=== PATIENT | female | born 1990 | race Caucasian/White ===

== ENCOUNTER 2023-05-11 03:06 | Emergency (ER) | payer MEDICAID ==
[~2023-05-11] VITALS: Ht 170.2 cm; Wt 145.1 kg
[2023-05-11 03:18] VITALS: BP 127/80; PULSE 153; RESP 16; TEMP 97; O2SAT 99
[2023-05-11 03:35] VITALS: O2SAT 94
[2023-05-11 03:39] VITALS: TEMP 98
[2023-05-11] MEDS ORDERED: MORPHINE SULFATE 4 MG/ML SYR IVP ONE (03:45)
[2023-05-11] MEDS ORDERED: ONDANSETRON 4 MG/2 ML VIAL IVP ONE (03:45)
[2023-05-11] MEDS ORDERED: NACL 0.9% 1,000 ML IV ONE (03:45)
[2023-05-11 04:00] LABS: BILIRUBIN,URINE NEGATIVE (NEGATIVE); BLOOD, URINE TRACE-I (NEGATIVE); COLOR,URINE YELLOW (YELLOW); LEUKOCYTE ESTERASE ,URINE NEGATIVE (NEGATIVE); NITRITE, URINE NEGATIVE (NEGATIVE); PROTEIN,URINE NEGATIVE (NEGATIVE); UGLUCOSE NEGATIVE (NEGATIVE); UROBILINOGEN,URINE 0.2 EU/dL (0.2 - 1)
[2023-05-11 04:23] LABS: BASOPHILS % (AUTO) 0.3 % (0.0-2.0); EOSINOPHILS # (AUTO) 0.1 K/uL (0-0.4); EOSINOPHILS % (AUTO) 0.6 % (0.0-4.0); HEMATOCRIT 39.9 % (36-48); HEMOGLOBIN 12.9 g/dL (12.0-16.0); LYMPHOCYTES # (AUTO) 1.1 K/uL (2.5-16.5); LYMPHOCYTES % (AUTO) 8.7 % (20.5-51.1); MEAN CORPUSCULAR HEMOGLOBIN 26 pg (27-31); MEAN CORPUSCULAR HGB CONC 32 g/dL (33-37); MEAN CORPUSCULAR VOLUME 81.8 fL (80-94); MONOCYTES # (AUTO) 0.9 K/uL (0.8-1.0); MONOCYTES % (AUTO) 7.5 % (1.7-9.3); NEUTROPHILS # (AUTO) 10.5 K/uL (1.8-7.7); PLATELET COUNT (AUTO) 305 K/uL (140-450); RED BLOOD CELL COUNT(AUTO) 4.88 MIL/uL (4.20-5.40); RED CELL DISTRIBUTION WIDTH 14.6 % (11.6-13.7); WHITE BLOOD COUNT (AUTO) 12.6 K/uL (4.8-10.8)
[2023-05-11 04:29] LABS: APPEARANCE,URINE SLIGHTLY HAZY (CLEAR)
[2023-05-11 04:30] LABS: ALBUMIN 3.2 g/dL (3.4-5.0); ANION GAP 10.3 (8-16); CALCIUM 8.4 mg/dL (8.5-10.1); CARBON DIOXIDE 29.7 mmol/L (21-32); CREATININE 0.9 mg/dL (0.6-1.3); TOTAL BILIRUBIN 0.5 mg/dL (0.0-1.0)
[2023-05-11 04:32] LABS: BACTERIA,URINE 1+ /HPF (None Seen); RBC,URINE 0-5 /HPF (0-5); WBC,URINE 0-5 /HPF (0-5)
[2023-05-11 04:50] LABS: NEUTROPHILS % (AUTO) 82.9 % (42.2-75.2)
[2023-05-11 05:34] VITALS: BP 101/50; PULSE 92; RESP 19; O2SAT 96
== END 2023-05-11 05:31 | disposition home or self-care (01) ==
LOC: MED 03:06
DX: K80.20 Calculus of gallbladder without cholecystitis without obstruction (principal); E66.01 Morbid (severe) obesity due to excess calories; Z68.1 Body mass index [BMI] 19.9 or less, adult; Z79.899 Other long term (current) drug therapy
CPT/HCPCS: 36415; 76705; 80053; 81001; 82150; 83690; 85025; 93005; 96361; 96374; 96375; 99285; J2270; J2405; J7030; Q0092

== ENCOUNTER 2023-06-08 03:16 | Emergency (ER) | payer MEDICAID ==
[~2023-06-08] VITALS: Ht 170.2 cm; Wt 136.1 kg
[2023-06-08 03:30] VITALS: BP 109/50; PULSE 111; RESP 21; TEMP 98.3; O2SAT 97
[2023-06-08 04:13] LABS: FLU A ANTIGEN negative (NEGATIVE); FLU B ANTIGEN negative (NEGATIVE)
[2023-06-08] MEDS ORDERED: ACETAMINOPHEN EXTRA STRENGTH 500 MG TAB PO ONE (04:20)
[2023-06-08] MEDS ORDERED: ONDANSETRON 4 MG ODT PO ONE (04:20)
[2023-06-08] MEDS ORDERED: KETOROLAC 60 MG/2 ML VIAL IM ONE (04:20)
[2023-06-08] MEDS ORDERED: ONDA-188 PO (04:49)
[2023-06-08] MEDS ORDERED: IBUP-2217 PO (04:52)
== END 2023-06-08 05:00 | disposition home or self-care (01) ==
LOC: MED 03:16
DX: U07.1 COVID-19 (principal); B34.9 Viral infection, unspecified; Z79.899 Other long term (current) drug therapy; Z79.1 Long term (current) use of non-steroidal anti-inflammatories (NSAID)
CPT/HCPCS: 87426; 87804; 96372; 99284; J1885; Q0162

== ENCOUNTER 2023-08-28 16:36 | Emergency (ER) | payer MEDICAID ==
[~2023-08-28] VITALS: Ht 170.2 cm; Wt 136.1 kg
[~2023-08-28 16:36] MED LIST: IBUP-2217 PO; ONDA-188 PO
[2023-08-28 16:46] VITALS: BP 127/88; PULSE 89; RESP 20; TEMP 98.1; O2SAT 100
[2023-08-28 17:28] LABS: BASOPHILS # (AUTO) 0.1 K/uL (0.00-0.22); BASOPHILS % (AUTO) 0.4 % (0.0-2.0); EOSINOPHILS # (AUTO) 0.2 K/uL (0-0.4); EOSINOPHILS % (AUTO) 1.4 % (0.0-4.0); HEMATOCRIT 39.1 % (36-48); HEMOGLOBIN 12.8 g/dL (12.0-16.0); LYMPHOCYTES % (AUTO) 13.5 % (20.5-51.1); MEAN CORPUSCULAR HEMOGLOBIN 27 pg (27-31); MEAN CORPUSCULAR HGB CONC 33 g/dL (33-37); MEAN CORPUSCULAR VOLUME 82.6 fL (80-94); MONOCYTES # (AUTO) 0.7 K/uL (0.8-1.0); NEUTROPHILS # (AUTO) 11.6 K/uL (1.8-7.7); NEUTROPHILS % (AUTO) 79.7 % (42.2-75.2); PLATELET COUNT (AUTO) 374 K/uL (140-450); RED BLOOD CELL COUNT(AUTO) 4.73 MIL/uL (4.20-5.40); RED CELL DISTRIBUTION WIDTH 14.4 % (11.6-13.7); WHITE BLOOD COUNT (AUTO) 14.5 K/uL (4.8-10.8)
[2023-08-28 17:45] LABS: ANION GAP 12.4 (8-16); CALCIUM 8.3 mg/dL (8.5-10.1); CARBON DIOXIDE 28.6 mmol/L (21-32); CREATININE 0.7 mg/dL (0.6-1.3)
[2023-08-28] MEDS: KETOROLAC 30 MG/ML VIAL IVP ONE (17:47)
[2023-08-28] MEDS: ONDANSETRON 4 MG/2 ML VIAL IVP ONE (17:47)
[2023-08-28 17:49] LABS: ALANINE AMINOTRANSFERASE 30 U/L (12-78); ALKALINE PHOSPHATASE 152 U/L (50-136); ASPARTATE AMINOTRANSFERASE 36 U/L (15-37); BILIRUBIN,DIRECT 0.2 mg/dL (0.0-0.3); LIPASE 48 U/L (16-77); TOTAL BILIRUBIN 0.3 mg/dL (0.0-1.0)
[2023-08-28 18:01] VITALS: O2SAT 96
[2023-08-28 18:32] VITALS: O2SAT 96
[2023-08-28] MEDS: MORPHINE SULFATE 4 MG/ML SYR IVP ONE (18:45)
[2023-08-28] MEDS: FAMOTIDINE 20 MG TAB PO ONE (18:59)
[2023-08-28] MEDS ORDERED: ONDA-188 SL (19:31)
[2023-08-28] MEDS ORDERED: ACET-8905 PO (19:31)
[2023-08-28] MEDS ORDERED: FAMO-90 PO (19:31)
== END 2023-08-28 19:45 | disposition home or self-care (01) ==
LOC: MED 16:36
DX: R10.13 Epigastric pain (principal); R07.9 Chest pain, unspecified; R11.10 Vomiting, unspecified; Z79.899 Other long term (current) drug therapy
CPT/HCPCS: 36415; 71045; 80048; 80076; 81002; 81025; 83690; 84484; 85025; 93005; 96374; 96375; 99285; J1885; J2270; J2405

== ENCOUNTER 2023-08-30 14:50 | Inpatient (IN) | payer MEDICAID ==
[~2023-08-30] VITALS: Ht 170.2 cm; Wt 136.1 kg
[~2023-08-30 14:50] MED LIST changes: +ACET-8905 PO; +FAMO-90 PO; +ONDA-188 SL
[2023-08-30 15:00] VITALS: BP 121/81; PULSE 103; RESP 18; TEMP 96.8; O2SAT 99
[2023-08-30 15:38] LABS: BASOPHILS % (AUTO) 0.2 % (0.0-2.0); EOSINOPHILS # (AUTO) 0.2 K/uL (0-0.4); EOSINOPHILS % (AUTO) 1.2 % (0.0-4.0); HEMATOCRIT 38.9 % (36-48); HEMOGLOBIN 12.8 g/dL (12.0-16.0); LYMPHOCYTES # (AUTO) 2.2 K/uL (2.5-16.5); LYMPHOCYTES % (AUTO) 15.4 % (20.5-51.1); MEAN CORPUSCULAR HEMOGLOBIN 27 pg (27-31); MEAN CORPUSCULAR HGB CONC 33 g/dL (33-37); MEAN CORPUSCULAR VOLUME 82.6 fL (80-94); MONOCYTES # (AUTO) 0.8 K/uL (0.8-1.0); MONOCYTES % (AUTO) 5.3 % (1.7-9.3); NEUTROPHILS # (AUTO) 11.3 K/uL (1.8-7.7); NEUTROPHILS % (AUTO) 77.9 % (42.2-75.2); PLATELET COUNT (AUTO) 381 K/uL (140-450); RED BLOOD CELL COUNT(AUTO) 4.71 MIL/uL (4.20-5.40); RED CELL DISTRIBUTION WIDTH 14.6 % (11.6-13.7); WHITE BLOOD COUNT (AUTO) 14.6 K/uL (4.8-10.8)
[2023-08-30 15:50] VITALS: O2SAT 99
[2023-08-30] MEDS: FAMOTIDINE 20 MG/2 ML VIAL IVP ONE (15:59)
[2023-08-30] MEDS: NACL 0.9% 1,000 ML IV ONE (16:00)
[2023-08-30] MEDS: MORPHINE SULFATE 4 MG/ML SYR IVP ONE (16:01)
[2023-08-30] MEDS: ONDANSETRON 4 MG/2 ML VIAL IVP ONE (16:01)
[2023-08-30 16:07] LABS: ANION GAP 13.8 (8-16); CARBON DIOXIDE 26.7 mmol/L (21-32); CREATININE 0.7 mg/dL (0.6-1.3); POTASSIUM 3.5 mmol/L (3.5-5.1)
[2023-08-30 16:09] LABS: BILIRUBIN,DIRECT 0.4 mg/dL (0.0-0.3); TOTAL BILIRUBIN 0.6 mg/dL (0.0-1.0); TOTAL PROTEIN, SERUM 8.1 g/dL (6.4-8.2)
[2023-08-30] MEDS ORDERED: PIPERACILLIN/TAZOBACTAM 3.375 GM VIAL IV ONE (16:54)
[2023-08-30] MEDS: PIPERACILLIN/TAZOBACTAM 3.375 GM in DEXTROSE 5% 50 ML IV ONE (16:58)
[2023-08-30 17:34] LABS: CALCIUM 8.6 mg/dL (8.5-10.1)
[2023-08-30] MEDS ORDERED: [UNRECOGNIZED DRUG - CODE] PO (17:53)
[2023-08-30] MEDS ORDERED: MORPHINE SULFATE 4 MG/ML SYR ONE (18:10)
[2023-08-30] MEDS: MORPHINE SULFATE 4 MG/ML SYR IV ONE (18:14)
[2023-08-30 19:47] VITALS: O2SAT 97
[2023-08-30 21:59] LABS: LACTIC ACID 1.4 mmol/L (0.4-2.0)
[2023-08-30] MEDS: HYDROcodone/APAP 5/325 MG 1 TAB TAB PO PRN (23:00)
[2023-08-31] MEDS: ONDANSETRON 4 MG/2 ML VIAL IVP PRN ×2 (00:56→13:55)
[2023-08-31] MEDS: LORazepam 1 MG TAB PO PRN (01:05)
[2023-08-31] MEDS: ZOLPIDEM 5 MG TAB PO PRN (01:05)
[2023-08-31 04:00] VITALS: BP 102/45; PULSE 92; RESP 18; TEMP 97.2; O2SAT 93
[2023-08-31 04:54] VITALS: O2SAT 97
[2023-08-31 05:38] VITALS: RESP 18
[2023-08-31 07:17] LABS: BASOPHILS % (AUTO) 0.2 % (0.0-2.0); EOSINOPHILS # (AUTO) 0.2 K/uL (0-0.4); EOSINOPHILS % (AUTO) 2.2 % (0.0-4.0); HEMATOCRIT 36.1 % (36-48); HEMOGLOBIN 11.9 g/dL (12.0-16.0); LYMPHOCYTES # (AUTO) 1.9 K/uL (2.5-16.5); LYMPHOCYTES % (AUTO) 26.3 % (20.5-51.1); MEAN CORPUSCULAR HEMOGLOBIN 27 pg (27-31); MEAN CORPUSCULAR HGB CONC 33 g/dL (33-37); MEAN CORPUSCULAR VOLUME 83.2 fL (80-94); MONOCYTES # (AUTO) 0.6 K/uL (0.8-1.0); MONOCYTES % (AUTO) 8.6 % (1.7-9.3); NEUTROPHILS # (AUTO) 4.4 K/uL (1.8-7.7); NEUTROPHILS % (AUTO) 62.7 % (42.2-75.2); PLATELET COUNT (AUTO) 318 K/uL (140-450); RED BLOOD CELL COUNT(AUTO) 4.34 MIL/uL (4.20-5.40); RED CELL DISTRIBUTION WIDTH 14.7 % (11.6-13.7)
[2023-08-31 07:50] LABS: ALBUMIN 2.4 g/dL (3.4-5.0); ANION GAP 10.6 (8-16); CALCIUM 7.7 mg/dL (8.5-10.1); CARBON DIOXIDE 27.5 mmol/L (21-32); CREATININE 0.6 mg/dL (0.6-1.3); POTASSIUM 4.1 mmol/L (3.5-5.1); TOTAL BILIRUBIN 0.5 mg/dL (0.0-1.0); TOTAL PROTEIN, SERUM 6.7 g/dL (6.4-8.2)
[2023-08-31 08:00] VITALS: BP 104/60; PULSE 86; RESP 18; TEMP 97.3; O2SAT 97
[2023-08-31] MEDS: DOCUSATE SODIUM 100 MG GELCAP PO SCH (09:05)
[2023-08-31] MEDS: PANTOPRAZOLE 40 MG INJ VIAL IVP SCH (09:11)
[2023-08-31] MEDS: LEVOFLOXACIN 750 MG/D5W PREMIX 150 ML IV SCH (09:12)
[2023-08-31] MEDS: LIDOCAINE/EPI 1% 1:100000 20 ML VIAL INJ ONE (10:27)
[2023-08-31] MEDS: BUPIVACAINE-MPF 0.25% 30 ML VIAL INJ ONE (10:27)
[2023-08-31] MEDS: ceFAZolin 2,000 MG VIAL ONE (10:27)
[2023-08-31 11:05] LABS: INR 0.98 (0.8-1.2); PROTHROMBIN TIME 10.3 secs (10.8-13.4)
[2023-08-31] MEDS ORDERED: SEVOFLURANE 250 ML BTL INH ONE (12:28)
[2023-08-31] MEDS ORDERED: NEOSTIGMINE 1:1000 10 MG/10 ML VIAL ONE (12:28)
[2023-08-31] MEDS ORDERED: GLYCOPYRROLATE 0.2 MG/ML VIAL ONE (12:28)
[2023-08-31] MEDS ORDERED: ONDANSETRON 4 MG/2 ML VIAL ONE (12:28)
[2023-08-31] MEDS: PROPOFOL 200 MG/20 ML VIAL IV ONE (12:48)
[2023-08-31] MEDS: SUCCINYLCHOLINE CHLORIDE 200 MG/10 ML VIAL IVP ONE (12:48)
[2023-08-31] MEDS: DEXAMETHASONE 4 MG/ML VIAL ONE (12:48)
[2023-08-31] MEDS: fentaNYL citrate 0.05 MG/ML VIAL ONE (13:49)
[2023-08-31] MEDS: ROCURONIUM 50 MG/5 ML VIAL IV ONE (13:49)
[2023-08-31] MEDS: LIDOCAINE MPF 2% 100 MG/5 ML VIAL INJ ONE (13:50)
[2023-08-31] MEDS: HYDROmorphone 1 MG/ML AMP IVP PRN (13:50)
[2023-08-31] MEDS: HYDROmorphone PFS 2 MG/ML SYR ONE (14:52)
[2023-08-31] MEDS: LACTATED RINGERS 1,000 ML IV SCH (15:01)
[2023-08-31 16:00] VITALS: BP 109/63; PULSE 82; RESP 17; TEMP 96.8; O2SAT 98
[2023-08-31] MEDS: MORPHINE SULFATE 4 MG/ML SYR IVP PRN (16:57)
[2023-08-31 20:00] VITALS: BP 114/69; PULSE 93; RESP 18; TEMP 97.3; O2SAT 98
[2023-09-01 04:00] VITALS: BP 110/72; PULSE 86; RESP 18; TEMP 98; O2SAT 95
[2023-09-01 06:27] LABS: BASOPHILS % (AUTO) 0.1 % (0.0-2.0); HEMATOCRIT 35.8 % (36-48); HEMOGLOBIN 11.7 g/dL (12.0-16.0); LYMPHOCYTES # (AUTO) 1.2 K/uL (2.5-16.5); MEAN CORPUSCULAR HEMOGLOBIN 27 pg (27-31); MEAN CORPUSCULAR HGB CONC 33 g/dL (33-37); MEAN CORPUSCULAR VOLUME 83.9 fL (80-94); MONOCYTES # (AUTO) 0.6 K/uL (0.8-1.0); MONOCYTES % (AUTO) 4.9 % (1.7-9.3); NEUTROPHILS # (AUTO) 9.9 K/uL (1.8-7.7); PLATELET COUNT (AUTO) 333 K/uL (140-450); RED BLOOD CELL COUNT(AUTO) 4.26 MIL/uL (4.20-5.40); RED CELL DISTRIBUTION WIDTH 15.1 % (11.6-13.7); WHITE BLOOD COUNT (AUTO) 11.6 K/uL (4.8-10.8)
[2023-09-01 06:45] LABS: ALBUMIN 2.7 g/dL (3.4-5.0); ANION GAP 12.8 (8-16); CALCIUM 7.8 mg/dL (8.5-10.1); CARBON DIOXIDE 26.3 mmol/L (21-32); CREATININE 0.7 mg/dL (0.6-1.3); POTASSIUM 4.1 mmol/L (3.5-5.1); TOTAL BILIRUBIN 0.3 mg/dL (0.0-1.0); TOTAL PROTEIN, SERUM 7.6 g/dL (6.4-8.2)
[2023-09-01] MEDS: ACETAMINOPHEN 325 MG TAB PO PRN (06:55)
[2023-09-01 08:00] VITALS: PULSE 79; RESP 18; O2SAT 98
[2023-09-01] MEDS: diphenhydrAMINE 50 MG/ML VIAL IVP PRN (12:58)
[2023-09-01 16:00] VITALS: BP 122/69; PULSE 98; RESP 18; TEMP 98.5; O2SAT 97
[2023-09-01 20:00] VITALS: BP 116/73; PULSE 86; RESP 18; TEMP 97.3; O2SAT 97
[2023-09-02 07:32] LABS: ALBUMIN 2.7 g/dL (3.4-5.0); ANION GAP 9.8 (8-16); CALCIUM 7.9 mg/dL (8.5-10.1); CARBON DIOXIDE 27.1 mmol/L (21-32); CREATININE 0.6 mg/dL (0.6-1.3); POTASSIUM 3.9 mmol/L (3.5-5.1); TOTAL PROTEIN, SERUM 7.1 g/dL (6.4-8.2)
[2023-09-02 07:45] VITALS: PULSE 78; RESP 20; O2SAT 99
[2023-09-02 08:13] LABS: BASOPHILS % (AUTO) 0.2 % (0.0-2.0); EOSINOPHILS % (AUTO) 0.3 % (0.0-4.0); HEMATOCRIT 34.9 % (36-48); HEMOGLOBIN 11.4 g/dL (12.0-16.0); LYMPHOCYTES # (AUTO) 1.3 K/uL (2.5-16.5); LYMPHOCYTES % (AUTO) 18.5 % (20.5-51.1); MEAN CORPUSCULAR HEMOGLOBIN 27 pg (27-31); MEAN CORPUSCULAR HGB CONC 33 g/dL (33-37); MEAN CORPUSCULAR VOLUME 83.1 fL (80-94); MONOCYTES # (AUTO) 0.8 K/uL (0.8-1.0); MONOCYTES % (AUTO) 11.2 % (1.7-9.3); NEUTROPHILS # (AUTO) 4.7 K/uL (1.8-7.7); NEUTROPHILS % (AUTO) 69.8 % (42.2-75.2); PLATELET COUNT (AUTO) 321 K/uL (140-450); RED BLOOD CELL COUNT(AUTO) 4.19 MIL/uL (4.20-5.40); RED CELL DISTRIBUTION WIDTH 14.9 % (11.6-13.7); WHITE BLOOD COUNT (AUTO) 6.8 K/uL (4.8-10.8)
[2023-09-02 20:00] VITALS: BP 95/62; PULSE 117; RESP 18; TEMP 97.5; O2SAT 98
[2023-09-03 04:00] VITALS: BP 107/57; PULSE 98; RESP 18; TEMP 96.7; O2SAT 100
[2023-09-03 07:07] LABS: BASOPHILS % (AUTO) 0.3 % (0.0-2.0); EOSINOPHILS # (AUTO) 0.3 K/uL (0-0.4); EOSINOPHILS % (AUTO) 3.4 % (0.0-4.0); HEMATOCRIT 36.4 % (36-48); LYMPHOCYTES # (AUTO) 2.2 K/uL (2.5-16.5); LYMPHOCYTES % (AUTO) 29.6 % (20.5-51.1); MEAN CORPUSCULAR HEMOGLOBIN 28 pg (27-31); MEAN CORPUSCULAR HGB CONC 33 g/dL (33-37); MEAN CORPUSCULAR VOLUME 83.4 fL (80-94); MONOCYTES # (AUTO) 0.5 K/uL (0.8-1.0); MONOCYTES % (AUTO) 6.6 % (1.7-9.3); NEUTROPHILS # (AUTO) 4.5 K/uL (1.8-7.7); NEUTROPHILS % (AUTO) 60.1 % (42.2-75.2); PLATELET COUNT (AUTO) 327 K/uL (140-450); RED BLOOD CELL COUNT(AUTO) 4.36 MIL/uL (4.20-5.40); RED CELL DISTRIBUTION WIDTH 15.1 % (11.6-13.7); WHITE BLOOD COUNT (AUTO) 7.5 K/uL (4.8-10.8)
[2023-09-03 07:46] LABS: ALBUMIN 2.4 g/dL (3.4-5.0); ANION GAP 11.8 (8-16); CALCIUM 7.9 mg/dL (8.5-10.1); CARBON DIOXIDE 28.1 mmol/L (21-32); CREATININE 0.6 mg/dL (0.6-1.3); POTASSIUM 3.9 mmol/L (3.5-5.1); TOTAL BILIRUBIN 0.5 mg/dL (0.0-1.0); TOTAL PROTEIN, SERUM 6.8 g/dL (6.4-8.2)
[2023-09-03 08:00] VITALS: BP 112/61; PULSE 100; RESP 18; TEMP 98.2; O2SAT 97
[2023-09-03] MEDS: SIMETHICONE 80 MG TAB.CHEW PO SCH (10:32)
[2023-09-03] MEDS ORDERED: ACET-8905 PO (12:44)
[2023-09-03 16:00] VITALS: BP 100/61; PULSE 102; RESP 18; TEMP 98.2; O2SAT 97
[2023-09-03 20:00] VITALS: BP 110/68; PULSE 94; RESP 18; TEMP 97.6; O2SAT 96
[2023-09-04 04:00] VITALS: BP 118/54; PULSE 90; RESP 16; TEMP 98; O2SAT 96
[2023-09-04 06:49] LABS: BASOPHILS % (AUTO) 0.2 % (0.0-2.0); EOSINOPHILS # (AUTO) 0.3 K/uL (0-0.4); EOSINOPHILS % (AUTO) 3.5 % (0.0-4.0); HEMATOCRIT 37.2 % (36-48); HEMOGLOBIN 12.3 g/dL (12.0-16.0); LYMPHOCYTES # (AUTO) 2.1 K/uL (2.5-16.5); MEAN CORPUSCULAR HEMOGLOBIN 27 pg (27-31); MEAN CORPUSCULAR HGB CONC 33 g/dL (33-37); MEAN CORPUSCULAR VOLUME 82.9 fL (80-94); MONOCYTES # (AUTO) 0.7 K/uL (0.8-1.0); MONOCYTES % (AUTO) 7.4 % (1.7-9.3); NEUTROPHILS # (AUTO) 6.4 K/uL (1.8-7.7); NEUTROPHILS % (AUTO) 66.9 % (42.2-75.2); PLATELET COUNT (AUTO) 312 K/uL (140-450); RED BLOOD CELL COUNT(AUTO) 4.48 MIL/uL (4.20-5.40); WHITE BLOOD COUNT (AUTO) 9.6 K/uL (4.8-10.8)
[2023-09-04 07:00] LABS: ALBUMIN 2.5 g/dL (3.4-5.0); ANION GAP 10.2 (8-16); CALCIUM 8.1 mg/dL (8.5-10.1); CARBON DIOXIDE 28.6 mmol/L (21-32); CREATININE 0.6 mg/dL (0.6-1.3); POTASSIUM 3.8 mmol/L (3.5-5.1); TOTAL BILIRUBIN 0.2 mg/dL (0.0-1.0); TOTAL PROTEIN, SERUM 6.8 g/dL (6.4-8.2)
[2023-09-04 08:00] VITALS: BP 113/77; PULSE 95; RESP 19; TEMP 96.7; O2SAT 100
[2023-09-04] MEDS ORDERED: AMOX-999 PO (10:17)
[2023-09-04 13:33] VITALS: BP 112/68; PULSE 96; RESP 20; TEMP 97.5
== END 2023-09-04 14:25 | disposition home or self-care (01) | DRG 710 ==
LOC: MED 14:50 → MMU 19:23 → MTU 20:39
PROVIDERS: ADMIT Student in an Organized Health Care Education/Training Program; ATTEND Student in an Organized Health Care Education/Training Program
PROC: 0FT44ZZ Resection of Gallbladder, Percutaneous Endoscopic Approach (ICD-10-PCS; principal; 2023-08-31 11:30)
DX: A41.9 Sepsis, unspecified organism (principal); K80.00 Calculus of gallbladder with acute cholecystitis without obstruction; E66.01 Morbid (severe) obesity due to excess calories; Z68.42 Body mass index [BMI] 45.0-49.9, adult; Z79.899 Other long term (current) drug therapy
CPT/HCPCS: 36415; 71045; 74018; 76705; 80048; 80053; 80076; 83605; 83690; 84702; 85025; 85610; 87040; 87081; 88304; 93005; 96361; 96365; 96375; 96376; 99285; C9113; J0330; J1100; J1170; J1200; J1956; J2001; J2270; J2405; J2543; J2704; J2710; J3010; J3490; J7030; J7120

== ENCOUNTER 2023-10-31 08:03 | Emergency (ER) | payer MEDICAID ==
[~2023-10-31 08:03] MED LIST changes: +AMOX-999 PO; -IBUP-2217 PO; -ONDA-188 PO; +[UNRECOGNIZED DRUG - CODE] PO
== END 2023-10-31 08:36 | disposition left against medical advice (07) ==
LOC: MED 08:03
DX: R07.89 Other chest pain (principal); Z53.21 Procedure and treatment not carried out due to patient leaving prior to being seen by health care provider